=== PATIENT | female | born 1985 | race Caucasian/White ===

== ENCOUNTER 2023-01-29 11:46 | Day surgery (SDC) | payer BC ==
[~2023-01-29 11:46] MED LIST: Albuterol 0.083% 2.5 MG/3 ML Neb Soln NEB PRN; HYDROmorphone 1 MG/ML Syringe IVPUSH PRN; Metoclopramide 10 MG/2 ML SDV IVPUSH PRN; Morphine 2 MG/ML SYRINGE IVPUSH PRN; Naloxone 0.4 MG/ML SDV IVPUSH PRN; Ondansetron 4 MG/2 ML SDV IVPUSH PRN; Sodium Chloride 0.9% 10 ML Syringe FLUSH PRN; Sodium Chloride 0.9% 2.5 ML Syringe FLUSH PRN; Sodium Chloride 0.9% 20 ML SDV IV PRN; droPERidol 5 MG/2 ML SDV IVPUSH PRN; fentaNYL 50 MCG/ML SDV IVPUSH PRN
[2023-01-29] MEDS ORDERED: Scopolamine 1.5 MG Transdermal Patch TOP ONE (12:00)
[2023-01-29 12:17] LABS: HEMATOCRIT 45.2 % (37.0-47.0); HEMOGLOBIN 15.7 g/dL (12.0-16.0); MEAN CORPUSCULAR HEMOGLOBIN 32.2 pg (28.0-32.0); MEAN CORPUSCULAR HGB CONC 34.7 g/dL (32.0-36.0); MEAN CORPUSCULAR VOLUME 92.6 fL (83.0-99.0); PLATELET COUNT,PLT 269 K/uL (150-400); RED BLOOD CELL COUNT 4.88 M/uL (4.10-5.30); WHITE BLOOD CELL COUNT,WBC 6.62 K/uL (3.9-11.3)
[2023-01-29] MEDS ORDERED: fentaNYL 100 MCG/2 ML SDV ONE (13:07)
[2023-01-29] MEDS ORDERED: Lidocaine 2% 5 ML SDV ONE (13:07)
[2023-01-29] MEDS ORDERED: Propofol 200 MG/20 ML SDV ONE (13:07)
[2023-01-29] MEDS ORDERED: Dexamethasone 4 MG/ML 5 ML MDV ONE (13:07)
[2023-01-29] MEDS ORDERED: Ketorolac 30 MG/ML SDV ONE (13:07)
[2023-01-29] MEDS ORDERED: Ondansetron 4 MG/2 ML SDV ONE (13:07)
[2023-01-29] MEDS ORDERED: Lactated Ringers 1,000 ML IV SCH (14:00)
== END 2023-01-29 14:45 | disposition home or self-care (01) ==
LOC: MW.SDS 11:46
PROVIDERS: ATTEND Obstetrics & Gynecology
DX: N93.9 Abnormal uterine and vaginal bleeding, unspecified (principal); N92.0 Excessive and frequent menstruation with regular cycle; J45.909 Unspecified asthma, uncomplicated; E03.9 Hypothyroidism, unspecified; F32.A Depression, unspecified; F41.9 Anxiety disorder, unspecified; E66.9 Obesity, unspecified; Z68.33 Body mass index [BMI] 33.0-33.9, adult; F17.210 Nicotine dependence, cigarettes, uncomplicated; Z79.51 Long term (current) use of inhaled steroids; Z79.890 Hormone replacement therapy; Z79.899 Other long term (current) drug therapy
CPT/HCPCS: 36415; 58353; 84703; 85027; J0131; J1100; J1885; J2405; J2704; J3010; J7120; J3490